=== PATIENT | female | born 2005 | race African-American/Black ===

== ENCOUNTER 2024-01-09 14:39 | Emergency (ER) | payer MEDICAID ==
[~2024-01-09] VITALS: Ht 162.6 cm; Wt 55.0 kg
[2024-01-09 14:42] VITALS: TEMP 98.6; O2SAT 99
[2024-01-09] MEDS: METOCLOPRAMIDE HCL 10MG/2ML VIAL IM ONE (17:10)
[2024-01-09] MEDS: DIPHENHYDRAMINE 50MG/ML VIAL IM ONE (17:10)
[2024-01-09] MEDS: KETOROLAC 30MG/ML VIAL IM ONE (17:11)
[2024-01-09 17:50] VITALS: BP 118/70; PULSE 64; RESP 12
== END 2024-01-09 17:50 | disposition home or self-care (01) ==
LOC: ER 14:39
DX: S09.90XA Unspecified injury of head, initial encounter (principal); Y93.I1 Activity, roller coaster riding; Y93.89 Activity, other specified; Y92.89 Other specified places as the place of occurrence of the external cause; Y99.8 Other external cause status
CPT/HCPCS: 99285; 70450; 96372; J1200; J1885; J2765